=== PATIENT | male | born 2000 | race Caucasian/White ===

== ENCOUNTER 2020-07-10 16:30 | Inpatient (IN) | payer BC ==
[~2020-07-10] VITALS: Ht 170.2 cm; Wt 71.2 kg
[2020-07-10 21:56] LABS: BASOPHILS % (AUTO) 0.3 % (0.0-2.0); EOSINOPHILS % (AUTO) 0.8 % (1.0-6.0); HEMOGLOBIN 15.1 g/dL (13.5-17.5); LYMPHOCYTES # (AUTO) 4.2 K/uL (1.0-4.8); LYMPHOCYTES % (AUTO) 33.5 % (22.0-44.0); MEAN CORPUSCULAR HEMOGLOBIN 31.8 pg (26.0-34.0); MEAN CORPUSCULAR HGB CONC 35.9 G/dL (31.0-37.0); MEAN CORPUSCULAR VOLUME 89 fL (80-100); MONOCYTES % (AUTO) 7.8 % (2.0-9.0); NEUTROPHILS # (AUTO) 7.2 K/uL (1.8-7.7); NEUTROPHILS % (AUTO) 57.6 % (40.0-70.0); PLATELET COUNT (AUTO) 290 K/uL (150-450); RED BLOOD CELL COUNT(AUTO) 4.73 MIL/uL (4.50-5.90); RED CELL DISTRIBUTION WIDTH 13.1 % (11.5-14.5)
[2020-07-10 22:04] LABS: AMPHET/METH SCREEN,URINE NEGATIVE (NEGATIVE); BARBITURATE SCREEN, URINE NEGATIVE (NEGATIVE); BENZODIAZEPINES SCREEN,URINE NEGATIVE (NEGATIVE); CANNABINOID SCREEN,URINE POSITIVE (NEGATIVE); COCAINE SCREEN,URINE NEGATIVE (NEGATIVE); METHADONE SCREEN, URINE NEGATIVE (NEGATIVE); OPIATE SCREEN,URINE NEGATIVE (NEGATIVE)
[2020-07-10 22:08] LABS: ANION GAP 4 mmol/L (8-16); CALCIUM, TOTAL 9.2 mg/dL (8.8-10.5); CARBON DIOXIDE 25 mmol/L (22-29); CHLORIDE 103 mmol/L (98-107); CREATININE 0.91 mg/dL (0.60-1.30); GLOMERULAR FILTR. RATE CALC > 60 mL/min (>60); GLUCOSE,RANDOM 90 mg/dL (70-110); POTASSIUM 3.4 mmol/L (3.5-5.1); SODIUM SERUM 132 mmol/L (136-145); UREA NITROGEN, BLOOD 19 mg/dL (7-18)
[2020-07-10 22:12] LABS: PHENCYCLIDINE SCREEN,URINE NEGATIVE (NEGATIVE)
[2020-07-10 22:14] LABS: ALANINE AMINOTRANSFERASE 43 U/L (12-78); ALBUMIN 4.5 g/dL (3.4-5.0); ALKALINE PHOSPHATASE 135 U/L (46-116); ASPARTATE AMINOTRANSFERASE 27 U/L (15-37); BILIRUBIN,TOTAL 0.5 mg/dL (0.1-1.0); TOTAL PROTEIN, SERUM 8.3 g/dL (6.4-8.2)
[2020-07-11] MEDS ORDERED: LORazepam 2 MG TABLET PO PRN (00:15)
[2020-07-11] MEDS ORDERED: HALOPERIDOL 5 MG TABLET PO PRN (00:15)
[2020-07-11] MEDS ORDERED: ZOLPIDEM TARTRATE 10 MG TABLET PO PRN (00:15)
[2020-07-11 00:17] LABS: COVID AG,FIA SOURCE NASAL SWAB
[2020-07-11 02:10] VITALS: BP 111/56
[2020-07-11] MEDS ORDERED: INFLUENZA VIRUS VACCINE QVS 2020-21 (6MO+)/PF 60 MCG/0.5 ML SYRINGE IM ONE (03:30)
[2020-07-11] MEDS ORDERED: DOCUSATE SODIUM 100 MG CAPSULE PO PRN (07:15)
[2020-07-11] MEDS ORDERED: LOPERAMIDE HCL 2 MG CAPSULE PO PRN (07:15)
[2020-07-11] MEDS ORDERED: ONDANSETRON HCL 4 MG TABLET PO PRN (07:15)
[2020-07-11] MEDS ORDERED: MAGNESIUM HYDROXIDE SUSPENSION 30 ML UDCUP PO PRN (07:15)
[2020-07-11] MEDS ORDERED: ACETAMINOPHEN 325 MG TABLET PO PRN (07:15)
[2020-07-11] MEDS ORDERED: MAG HYDROX/AL HYDROX/SIMETH ES 30 ML SUSPENSION UDCUP PO PRN (07:15)
[2020-07-11] MEDS ORDERED: IBUPROFEN 400 MG TABLET PO PRN (07:15)
[2020-07-11] MEDS ORDERED: GuaiFENesin/D-METHORPHAN [SUGAR-FREE] 200-20MG/10 ML SYRUP UDCUP PO PRN (07:15)
[2020-07-11] MEDS ORDERED: PETROLATUM,WHITE 28 GM JELLY TP PRN (07:15)
[2020-07-11] MEDS ORDERED: CloNIDine HCL 0.1 MG TABLET PO PRN (07:15)
[2020-07-11] MEDS ORDERED: ALBUTEROL SULFATE HFA 90 MCG/PUFF 8 GM INHALER IH PRN (07:15)
[2020-07-11 08:00] VITALS: BP 110/55
[2020-07-11 16:05] VITALS: BP 108/66
[2020-07-11] MEDS: QUEtiapine FUMARATE 100 MG TABLET PO SCH (20:20)
[2020-07-12 06:40] LABS: CHOL/HDL RATIO 3.8 (4.2-7.3)
[2020-07-12 08:00] VITALS: BP 124/68
[2020-07-12 16:00] VITALS: BP 131/64
[2020-07-12] MEDS: QUEtiapine FUMARATE 100 MG TABLET PO SCH (20:17)
[2020-07-13 08:00] VITALS: BP 121/68
[2020-07-13 16:00] VITALS: BP 127/78
[2020-07-13] MEDS: NICOTINE 14 MG/24 HOUR PATCH TD PRN (18:27)
[2020-07-13] MEDS: QUEtiapine FUMARATE 100 MG TABLET PO SCH (20:26)
[2020-07-14 09:45] VITALS: BP 104/64
[2020-07-14 12:02] VITALS: BP 128/78
[2020-07-14 13:02] VITALS: BP 126/64
[2020-07-14 16:00] VITALS: BP 121/65
[2020-07-14] MEDS: NICOTINE 14 MG/24 HOUR PATCH TD PRN (18:41)
[2020-07-14] MEDS: QUEtiapine FUMARATE 100 MG TABLET PO SCH (20:03)
[2020-07-15 06:49] LABS: ANION GAP 8 mmol/L (8-16); CARBON DIOXIDE 29 mmol/L (22-29); CHLORIDE 106 mmol/L (98-107); GLOMERULAR FILTR. RATE CALC > 60 mL/min (>60); GLUCOSE,RANDOM 89 mg/dL (70-110); POTASSIUM 4.6 mmol/L (3.5-5.1); SODIUM SERUM 143 mmol/L (136-145); UREA NITROGEN, BLOOD 14 mg/dL (7-18)
[2020-07-15 09:23] VITALS: BP 141/81
[2020-07-15] MEDS: NICOTINE 14 MG/24 HOUR PATCH TD PRN (10:51)
[2020-07-15 16:47] VITALS: BP 134/84
[2020-07-15] MEDS: QUEtiapine FUMARATE 100 MG TABLET PO SCH (20:29)
[2020-07-16 10:07] VITALS: BP 158/98
[2020-07-16] MEDS ORDERED: QUET100T33 PO (12:02)
== END 2020-07-16 15:30 | disposition home or self-care (01) | DRG 885 ==
LOC: EMS 16:30 → 3EI 07-11 00:15
DX: F29 Unspecified psychosis not due to a substance or known physiological condition (principal); E87.6 Hypokalemia; D72.829 Elevated white blood cell count, unspecified; F12.20 Cannabis dependence, uncomplicated; I95.9 Hypotension, unspecified; F19.10 Other psychoactive substance abuse, uncomplicated; Z20.828 Contact with and (suspected) exposure to other viral communicable diseases; Z28.21 Immunization not carried out because of patient refusal; Z79.899 Other long term (current) drug therapy
CPT/HCPCS: 87426; G0480